=== PATIENT | male | born 1995 | race Caucasian/White ===

== ENCOUNTER 2021-01-10 21:29 | Emergency (ER) | payer MEDICAID, SELFPAY | END 2021-01-10 22:43 | disposition left against medical advice (07) | PROVIDERS: Emergency Provider Emergency Medicine | DX: R13.10 Dysphagia, unspecified (principal) ==

== ENCOUNTER 2021-01-17 23:01 | Emergency (ER) | payer MEDICAID, SELFPAY ==
[2021-01-18 00:10] VITALS: BP 130/90; PULSE 76; RESP 20; TEMP 36.8; O2SAT 98; BMI 22.6
--- NOTE | 2021-01-18 00:33 | ED_ITS ---
HPI - Psych General Chief Complaint: Psychiatric Symptoms Stated Complaint: SI Time Seen by Provider: 01/18/21 00:33 Source: patient Mode of arrival: ambulatory Limitations: no limitations History of Present Illness HPI Narrative: Patient with history of depression been feeling sad for some time sometimes feel suicidal without any plan complaint: suicidal ideation and feels depressed Onset (ago): day(s) Duration: constant History of same: Yes Relieving factors: none Exacerbating factors: none Related Data Allergies Allergy/AdvReac Type Severity Reaction Status Date / Time No Known Allergies Allergy Unverified 07/05/20 16:18 [No Known Allergies*] Review of Systems Review of Systems: Constitutional : No Fever, No Chills ENT/Mouth : No Ear Pain, No Nasal Congestion, No sore throat Eyes: No Eye Pain, No Swelling, No Redness Cardiovascular : No Chest Pain, No SOB Respiratory : No Cough, No Sputum, No Dyspnea Gastrointestinal : No Nausea, No Vomiting, No Diarrhea, No Hematochezia, No Melena Genitourinary : No Dysuria, No Urinary Frequency, No Hematuria Musculoskeletal : No Myalgias Skin : No Skin Lesions, No rash Neuro : No Weakness, No Numbness, No Paresthesias, No Dizziness, No Headache Psych : -ve Anxiety, positive Depression, positive SI Heme/Lymph: No Lymphadenopathy Endocrine : No Polyuria, No Polydipsia [facility] Past Medical History Medical History (Updated 01/18/21 @ 00:38 by Dung Haines MD) Depression Social History Social History Alcohol intake: unknown Smoking Status: Unknown if ever smoked Use of substances other than those prescribed or required for medical reasons: Refusing to respond Advance Directives: No Advance Directives Information Provided: No Physical Exam Vital Signs: Vital Signs: Last Vital Signs Temp 98.2 F 01/18/21 00:10 Pulse 76 01/18/21 00:10 Resp 16 01/18/21 05:30 BP 130/90 H 01/18/21 00:10 Pulse Ox 98 01/18/21 00:10 Body Mass Index 22.6 Const: General: comfortable and no acute distress Orientation/consciousness: patient oriented x3 HENMT: Head: Yes normocephalic Resp: Effort & Inspection: normal respiratory effort Auscultation: clear to auscultation bilaterally Cardio: Palpation: normal PMI Rate: regular rate Rhythm: regular rhythm Heart sounds: S1 normal heart sound present and S2 normal heart sound present GI: Inspection: Yes normal to inspection Palpation (GI): Soft to palpation and nontender Auscultation: normal bowel sounds Back/Spine/Pelvis: Thoracic/Lumbar Spine: thoracic and lumbar spine normal to inspection Skin: General skin exam: no rashes or lesions noted Neuro: General: patient oriented x3 and no focal motor deficits Extrem: General: Yes normal to inspection Psych: Appearance: grossly normal Mental Status: mental status grossly normal Speech and movement: Normal speech and movement present Affect: Sad affect present Attitude: cooperative Thought process: Normal thought process present Thought content: Suicidality present Insight: Limited ins ight present (Psych) Judgement: Good judgement present (Psych) MDM - Psych MDM Narrative Medical decision making narrative: Patient with history of depression, suicidal ideation and History of PCP use comes for increasing depression and not feeling good will get crisis evaluate the patient Differential Diagnosis Differential diagnosis: Likely suicidal ideation and depression Lab Data Attestation: I reviewed the patient's lab results. Labs: Lab Results 01/18/21 Range/Units 02:29 COVID-19 (JULIA) Negative (Negative) COVID-19 Clin Com See Note
[2021-01-18 01:52] VITALS: RESP 16
--- NOTE | 2021-01-18 01:56 | PC.NURSE ---
PT ASLEEP REFUSING TO ANSWER QUESTIONS. SKIN PWD RESPIRATIONS EVEN UNLABORED. PO AT BEDSIDE FOR SAFETY.
[2021-01-18 02:57] LABS: COVID-19 Test Negative (Negative); IDNOW Serial# 9DD0AD1C
[2021-01-18 05:30] VITALS: RESP 16
[2021-01-18 08:09] VITALS: BP 137/86; PULSE 66; RESP 18; O2SAT 98
--- NOTE | 2021-01-18 08:10 | PC.NURSE ---
pt woke up, alert and oriented, skin appropriate for ethnicity. pt calm and cooperative, pt states that last night he got into a verbal altercation with his girlfriend after having some alcohol beverages and smoking pcp, pt reports making some vague suicidal statements last night but denies feeling suicidal at this time. states that he wants to go home because he needs to be at work for 1100. pt set up with breakfast farida
--- NOTE | 2021-01-18 08:19 | PC.NURSE ---
CALLED [facility] TO FIND WHEN THEY MIGHT BE ARRIVING TO SEE PT'S TODAY ACCORDING TO JORDAN FROM [facility], JORDAN SAID NO UNTIL SOMETIME THIS AFTERNOON, ALSO ASKED IF THE CARE TEAM WOULD LIKE TO STEP.
--- NOTE | 2021-01-18 09:03 | MHC.RECOVSUP ---
Addendum entered by Anthony Daigle [facility] 01/18/21 09:23: Patient was provided with number for [facility] and instructed to call if he begins to have thoughts to harm himself or others. Patient accepted this information and reported no questions at this time. Original Note: Recovery Support note: Patient is a 25 year old Wolof speaking male who presented to [facility] ED under the influence of PCP and alcohol reporting thoughts of not wanting to be here anymore. This development writer met with patient to discuss his substance use, mental health and treatment options at the request of ED charge nurse. Patient was willing to discuss the events that lead up to his ED visit with this development writer. Patient reports life stressors including his relationship and his sexuality. Reports he got into an argument with his girlfriend and started drinking and using PCP to take his mind off of these stressors. Patient reports while under the influence, he began having vague SI thoughts. Patient reports he drinks fireball 3-5 days a week and uses PCP about once a week. Discussed substance use with patient and how it can contribute to his stressors. Patient acknowledged and reported he is interested in developing better ways to handle stressful situations. In addition, patient reports feeling isolated and that he does not have anyone who he can talk to about how he is feeling. Patient reports he misses his family and his nephews but that his sisters think he is weird and that they are jealous of how he was the favorite child growing up. Patient reports he is currently working to save up money to get an apartment and that he is working with staff at a [facility] to get approved for section 8. Patient acknowledges he has a lot on his plate contributing to his stress. Patient expressed interest in getting connected with an outpatient therapist to have someone he can talk to for support. This development writer discussed recovery coaching and [facility] with patient as another form of support to assist him in reducing his substance use. Patient accepted information on this resource. Patient denies SI and HI at this time and reports he feels safe to discharge and go to work. Patient reports he has never made any attempt to harm himself and that he does not have a plan to do so. This development writer will refer patient to [facility] for outpatient therapy. Discussed case with patient's ED provider and CARE Team.
== END 2021-01-18 09:54 | disposition home or self-care (01) ==
PROVIDERS: Emergency Provider Internal Medicine; PCP Nurse Practitioner Family
DX: F33.1 Major depressive disorder, recurrent, moderate (principal); R45.851 Suicidal ideations; Z20.822 Contact with and (suspected) exposure to COVID-19; Z79.899 Other long term (current) drug therapy
CPT/HCPCS: 36415; 87635; 99284

== ENCOUNTER 2021-01-22 07:47 | Outpatient (REF) | payer MEDICAID, SELFPAY ==
--- NOTE | ~2021-01-22 | XR_ITS ---
EXAMINATION:XR ankle RT min 3V CLINICAL INFORMATION: Reason for Exam M25.579 - Pain in unspecified ankle and joints of unspeci... COMPARISON: May 2020 TECHNIQUE: AP, lateral, and mortise views of the ankle. FINDINGS: Hardware plate and multiple screws distal fibula and lateral malleolus, hardware in place properly positioned, fracture lines no longer visible on fused. There is no fracture or dislocation. Ankle mortise is preserved. Tibial plafond and talar dome are intact. Medial and lateral malleoli are properly aligned. Subtalar joint is normal. There is no osteolytic or osteoblastic lesions. XR/XR ankle RT min 3V IMPRESSION: ORIF distal fibular fracture, the fracture has healed.
== END 2021-01-22 07:48 | disposition home or self-care (01) ==
LOC: HO.HOSX 07:47
PROVIDERS: Visit Provider Orthopaedic Surgery
DX: M25.571 Pain in right ankle and joints of right foot (principal); F32.9 Major depressive disorder, single episode, unspecified; Z98.890 Other specified postprocedural states
CPT/HCPCS: 73610; 99212

== ENCOUNTER 2021-03-11 03:54 | Emergency (ER) | payer MEDICAID, SELFPAY ==
[2021-03-11 04:46] VITALS: BP 129/70; PULSE 88; RESP 16; TEMP 36.7; O2SAT 98; BMI 30.7
--- NOTE | 2021-03-11 08:25 | ED.GENADULT ---
HPI - General Adult General Chief complaint: Anxiety Stated complaint: Anxiety Time Seen by Provider: 03/11/21 05:19 Source: patient Mode of arrival: ambulatory History of Present Illness HPI narrative: 25-year-old male presents with feelings of being overwhelmed regarding his social situation with being homeless and limited resources for money, housing despite having family in the area. He denies being suicidal or homicidal and otherwise denies any fever, chills, GI or symptoms. Related Data Home Medications Medication Instructions Recorded Confirmed No Known Home Meds 01/22/21 01/22/21 Allergies Allergy/AdvReac Type Severity Reaction Status Date / Time No Known Allergies Allergy Unverified 07/05/20 16:18 [No Known Allergies*] Review of Systems Review of Systems: Pertinent positives and negatives as stated in HPI and 10 point review of systems is otherwise negative. PMFSH Past Medical History Source: nursing notes reviewed Medical History Depression No known health problems Social History Social History Alcohol intake: unknown Smoking Status: Unknown if ever smoked Advance Directives: No Advance Directives Information Provided: No Current occupational status: employed Current occupation: Retail - Right Handed Physical Exam Vital Signs: Vital Signs: Last Vital Signs Temp 98.0 F 03/11/21 04:46 Pulse 88 03/11/21 04:46 Resp 16 03/11/21 04:46 BP 129/70 03/11/21 04:46 Pulse Ox 98 03/11/21 04:46 Body Mass Index 30.7 VITAL SIGNS: Reviewed. GENERAL: Well developed, well nourished, in no acute distress. HEAD: Normocephalic/atraumatic EYES: PERRLA, EOMI OROPHARYNX: no oral lesions noted, posterior pharynx clear LUNGS: Normal breath sounds.SpO2<98> CARDIOVASCULAR: Regular rate and rhythm without noted murmurs ABDOMEN: Soft, non-tender, non-distended with bowel sounds. PSYCH: Tearful, calm Course Course Course Narrative: This is a 25-year-old male with history and clinical presentation consistent with underlying depression without evidence of suicidal homicidal ideation. Patient appears to be overwhelmed with his current social situation and will ask the care team to coordinate with the patient on possible alternatives. Patient does have a weakly counselor that he Zooms with. The care team has made arrangements for patient to stay at [facility]. Patient feels better about this and is being offered the opportunity to speak with other support personnel at this location as well as case management resources. Patient discharged in stable condition via transportation arranged for by the care team. Discharge Plan Discharge Clinical Impression: Depression, Anxiety Patient Disposition: Home, Self-Care Instructions: Depression (ED), Anxiety (ED) Additional Instructions: Return to the ER for any worsening of your symptoms, especially thoughts of wanting to harm yourself. Referrals: [facility] [Primary Care Provider] - 2 days
--- NOTE | 2021-03-11 09:23 | MHC.CARE ---
0700: Met w/ pt at the request of ED Provider Teresa Oneill, consult placed as pt was feeling overwhelmed . Pt is homeless, working, and is not a drug user. Pt is looking for additional services though he is not sure what additional services he is looking for. Pt has a PCP and a counselor through [facility]. CARE Team called the living room and spoke with staff on duty who advised CARE Team that pt could come to the facility. The living room will outline additional services pt can take advantage of if needed and will also assist with intermediate placement. Pt was transported to the living room via Lyft with the assistance of the Recovery Team.
== END 2021-03-11 09:25 | disposition home or self-care (01) ==
PROVIDERS: Emergency Provider Student in an Organized Health Care Education/Training Program
DX: F41.9 Anxiety disorder, unspecified (principal); F32.9 Major depressive disorder, single episode, unspecified
CPT/HCPCS: 99283

== ENCOUNTER 2024-03-28 12:00 | Outpatient (REF) | payer MEDICAID, SELFPAY ==
[2024-03-31 10:03] LABS: C. trachomatis RNA TMA NOT DETECTED (NOT DETECTED); N. gonorrhoeae RNA TMA NOT DETECTED (NOT DETECTED)
== END 2024-03-28 12:01 | disposition home or self-care (01) ==
LOC: HO.HHCLNP 12:00
PROVIDERS: Visit Provider General Practice
DX: Z11.3 Encounter for screening for infections with a predominantly sexual mode of transmission (principal)
CPT/HCPCS: 36415; 87491; 87591